=== PATIENT | female | born 1965 | race Caucasian/White ===

== ENCOUNTER 2019-07-30 07:53 | Day surgery (SDC) | payer OTHER ==
[2019-07-29 16:43] VITALS: BMI 38.0
[2019-07-30 09:23] VITALS: TEMP 97.7
[2019-07-30 10:02] VITALS: PULSE 77
[2019-07-30 11:33] VITALS: BP 119/70
--- NOTE | 2019-08-02 12:03 | PATH ---
Surgical Pathology Report Patient Name: MARTINA SUMNER [facility]. Rec. #: [id number] /Age/Gender: 1965 (Age: 54) / F Account: [id number] Location: [facility]-ENDOSCOPY Taken: 07/30/2019 Received: 07/30/2019 Reported: 08/02/2019 Physicians: Harry Enrique M.D. Specimen(s) Received TRANSVERSE COLON POLYPS Clinical History Family history of GI cancer, colon screening, family history of colon polyp Postoperative diagnosis: Diverticulosis, polyps Final Diagnosis TRANSVERSE COLON, POLYPS, BIOPSY: TUBULAR ADENOMA. HYPERPLASTIC POLYP(S). Electronically Signed Leydi Maloney M.D. Gross Description Received in formalin, labeled "polyps transverse colon" are 4 jefferson, irregular portions of soft tissue ranging from 0.1-0.3 cm. in greatest dimension. The specimens are submitted in toto in one cassette. /07/30/2019 saudi07/30/2019
== END 2019-07-30 10:26 | disposition home or self-care (01) ==
LOC: JASU-ENDO 07:53
PROVIDERS: ATTEND Internal Medicine Gastroenterology
PROC: 0DBL8ZX Excision of Transverse Colon, Via Natural or Artificial Opening Endoscopic, Diagnostic (ICD-10-PCS; principal; 2019-07-30 08:45)
DX: Z12.11 Encounter for screening for malignant neoplasm of colon (principal); Z86.010 Personal history of colon polyps; D12.3 Benign neoplasm of transverse colon; K57.30 Diverticulosis of large intestine without perforation or abscess without bleeding; K63.89 Other specified diseases of intestine
CPT/HCPCS: 88305-TC